=== PATIENT | female | born 1965 | race Caucasian/White ===

== ENCOUNTER 2024-02-06 00:08 | Emergency (ER) | payer BC, SELFPAY ==
[2024-02-06 00:12] VITALS: BP 136/90
[2024-02-06 00:27] VITALS: BMI 30.9
--- NOTE | 2024-02-06 00:31 | ED.GENMED ---
History of Present Illness
General
Chief Complaint: Head Injury
Source: patient
Exam Limitations: none
Time Seen by Provider: 02/06/24 00:24
Travel History
Have you had any contact with someone who has COVID-19?: No
Do you have any symptoms of coronavirus? Fever > 100 degrees, chills, cough, shortness of breath, sore throat, loss of taste or smell, muscle aches, or headache?: No
History of Present Illness
History of Present Illness:
See MDM
Past History
Past History
ED Past Medical History: None
ED Past Surgical History: None
Social History
Tobacco: Non-smoker
Drug: None
Personal:
Phy Exam
Physical Exam
Physical Exam:
See MDM
Course
Orders/Labs/Results
Orders:
Orders
02/06/24 00:[address] [CT Head W/o Iv Contrast] Urgent
Comment:
Reason For Exam: FALL INTO IRON BEDFRAME, SOFT TISSUE SWELLING
02/06/24 00:31
Ketorolac [Toradol] 30 mg IM NOW STA
Ondansetron Orally Disint [Zofran Odt (Orally Disintegrating)] 4 mg PO NOW STA
Vital Signs
Initial and Last Documented VS:
Initial Vital Signs
Temp Pulse Resp BP Pulse Ox
98.2 F 106 22 136/90 96
02/06/24 00:12 02/06/24 00:12 02/06/24 00:12 02/06/24 00:12 02/06/24 00:12
Last Documented Vital Signs
Temp Pulse Resp BP Pulse Ox
98.2 F 68 16 110/82 98
02/06/24 00:12 02/06/24 02:00 02/06/24 02:00 02/06/24 02:00 02/06/24 02:00
MDM/Problems Addressed
Differential Diagnosis Includes:
HPI and MDM Narrative:
58-year-old female presenting with posterior head trauma. Patient slid out of her bed and she hit the metal railing. She developed a sudden hematoma. She developed double vision and nausea. The double vision has improved but she is still
nauseous.
On exam, patient has large posterior scalp hematoma. Given age and mechanism of trauma, will obtain CT head
Physical exam
General: Well appearing and non-toxic
HEENT: protecting airway. Large posterior scalp hematoma
Neck: appears supple
CV: No evidence of cyanosis
Resp: No accessory muscle use
Abd: Non-distended
Extremities: No deformities
Neuro: alert
Psych: Normal affect
Skin: Intact
Problems Addressed including Acute and Chronic Conditions affecting care:
1. Head injury
Acuity: acute
Prognosis: stable
Details: Given the posterior scalp hematoma and mechanism of injury, will obtain CT head
Updates
CT head negative. Discussed return precautions
Differential Diagnosis (but not limited to): Concussion, intracranial hemorrhage, skull fracture
Testing considered: CT neck but no tenderness noted
Drug therapy (if applicable): OTC meds, please see d/c instruction regarding Rx drugs
Amount and/or Complexity of Data Reviewed
Clinical info obtained from: Patient
External data reviewed: N/A
Labs I independently reviewed (but not limited to): N/A
Radiology: The CT scan was personally and independently reviewed. In addition, official CT report reviewed.
Pulse Ox: not hypoxic
EKG independently reviewed: N/A
Neonatal Specialist: N/A
Critical Care: N/A
Risk of Complication:
Social Determinants of health: Good social support
Discussed with other providers: N/A
Escalation of Care includes Admit/Obs: After being observed in the Emergency Department, pt stable for discharge.
Occasional wrong word or 'sound a like' substitutions may have occurred due to the inherent limitations of voice recognition software. Read the chart carefully and recognize, using context, where substitutions have occurred.
*Critical Care Note
Total Time (30-74mins, 75-104mins- exclusive of procedures): Not Applicable
ED Attending Note
-
Portions of this chart may have been created with voice recognition software.� Occasional wrong word or��sound alike� substitutions may have occurred due to the inherent limitations of voice recognition software.
Discharge Plan
Departure
Patient Disposition: Home (Routine Discharge)
Date of Disposition: 02/06/24
Time of Disposition: 02:16
Patient with high blood pressure during this ER visit?: No
Discharge Problem:
Head injury
Instructions: Head Injury in Adults (DC)
Prescriptions:
New
ondansetron 4 mg Tablet,Disintegrating
4 mg PO BIDPRN PRN (Reason: nausea/vomiting) Qty: 10 0RF
Referrals:
Mauricio Goodson MD [Family Provider] -
Activity Restrictions/Additional Instructions:
Please return for any worsening symptoms.
You may return at any time if you have further concerns.
Please follow up with your doctor at the first available appointment, preferably this week.
Thank you for choosing [facility].
Interventions
Interventions:
*Risk Screen - Suicide Last Done: 02/06/24 00:12
*General Assessment Last Done: 02/06/24 00:27
*Neglect/Abuse Screening Last Done: 02/06/24 00:12
ED-Musculoskeletal Assessment Last Done: 02/06/24 00:28
ED- Neurological Assessment Last Done: 02/06/24 00:28
ED-Skin Assessment Last Done: 02/06/24 00:28
Discharge Date and Time
Print Language: [facility]
[2024-02-06] MEDS: ZOFRAN ODT (ORALLY DISINTEGRATING) 4 MG PO (00:34)
[2024-02-06] MEDS: TORADOL 30 MG IM (00:36)
[2024-02-06 02:00] VITALS: BP 110/82
== END 2024-02-06 02:30 | disposition home or self-care (01) ==
LOC: EMR 00:08
PROVIDERS: EMERGENCY PHYSICIAN Student in an Organized Health Care Education/Training Program; FAMILY PHYSICIAN Family Medicine
DX: S09.90XA Unspecified injury of head, initial encounter (principal); S00.03XA Contusion of scalp, initial encounter; R11.0 Nausea; W18.09XA Striking against other object with subsequent fall, initial encounter
CPT/HCPCS: 99284; 96372; 70450

== ENCOUNTER → 2025-07-05 10:07 | Outpatient (REF) | payer BC, SELFPAY | LOC: HWWDC 10:07 | PROVIDERS: ATTENDING PHYSICIAN Pediatrics; FAMILY PHYSICIAN Family Medicine; REFERRING PHYSICIAN Obstetrics & Gynecology | DX: Z12.31 Encounter for screening mammogram for malignant neoplasm of breast (principal) | CPT/HCPCS: 77063; 77067 ==